=== PATIENT | male | born 1945 | race Caucasian/White ===

== ENCOUNTER → 2021-03-12 | Outpatient (CLI) | payer MEDICARE, OTHER ==
--- NOTE | 2021-03-12 11:12 | Diagnostic Imaging Report ---
PROCEDURE: CT urinary tract, rule out kidney stone. TECHNIQUE: Multiple contiguous axial images were obtained through the abdomen and pelvis without the use of intravenous contrast. Auto Exposure Controls were utilized during the CT exam to meet ALARA standards for radiation dose reduction. INDICATION: Gross hematuria, history of renal malignancy and partial left nephrectomy; that treatment was seven years ago. COMPARISON: No priors. FINDINGS: There are multiple calculi within the bladder's lumen; the largest is 12 mm. The bladder is mildly thickened; however, it is not well distended, and its wall thickness is probably exaggerated on that basis. This patient has a faint nonobstructing punctate calculus within a left renal lower pole calyx of 1-2 mm. There is no right-sided renal calculus. There is no hydronephrosis. No radiopaque ureteral stone. Some mild nonspecific stranding of the bilateral perinephric fat, which may be chronic. A vague area of hypoattenuation in the right kidney at its middle third anteriorly measures just less than 2 cm, and a small partly exophytic low-density nodule in the left renal lower pole measures 9 mm. Peripheral calcifications along the anterior left renal upper pole cortex are likely postsurgical or post-treatment. The low-density renal foci are suboptimally characterized at this nonenhanced exam and are likely but inconclusively cysts. If the patient cannot tolerate iodinated contrast, follow-up with renal ultrasound suggested to assess their solid versus cystic character. This patient has a small hiatal hernia as well as a left hepatic lobe cyst and mild fatty infiltration. Low-density nodule in the right hepatic lobe segment is probably cystic as well. The gallbladder is normal. The adrenals are negative. The pancreas is negative. Spleen is normal in size. The aorta is nonaneurysmal. No abdominopelvic mesenteric or retroperitoneal lymphadenopathy. 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 No acute or suspicious appearing bony pathology. IMPRESSION: 1. Multiple bladder calculi and a nonobstructing intrarenal left kidney stone. No opaque ureteral stone or hydronephrosis. 2. Bladder shows equivocal thickening likely exaggerated by its lack of distention; however, an element of cystitis superimposed is suspected. 3. Vague low-density renal nodules, likely but inconclusively cystic. Either correlative [id number] imaging or sonographic interrogation recommended as nonemergent follow-up. 4. Fatty infiltration of the liver with scattered liver cysts, but no biliary abnormality. 5. No lymphadenopathy or findings suggestive of soft tissue or osseous metastasis. Dictated by: Dictated on workstation # [id number]
== END ==
LOC: RAD FS 10:36
PROVIDERS: ATTEND Family Medicine
DX: N21.0 Calculus in bladder (principal); N20.0 Calculus of kidney; N28.89 Other specified disorders of kidney and ureter; K76.0 Fatty (change of) liver, not elsewhere classified; K76.89 Other specified diseases of liver; Z85.528 Personal history of other malignant neoplasm of kidney; Z90.5 Acquired absence of kidney
CPT/HCPCS: 74176

== ENCOUNTER → 2021-03-30 | Outpatient (CLI) | payer MEDICARE, OTHER ==
--- NOTE | 2021-03-30 09:16 | Diagnostic Imaging Report ---
PROCEDURE: CT urinary tract, rule out kidney stone. TECHNIQUE: Multiple contiguous axial images were obtained through the abdomen and pelvis without the use of intravenous contrast. Auto Exposure Controls were utilized during the CT exam to meet ALARA standards for radiation dose reduction. INDICATION: Nephrolithiasis, followup. CORRELATION STUDY: 03/12/2021. FINDINGS: LOWER THORAX: Small hiatal hernia and slight circumferential wall thickening at the gastroesophageal junction. Lung bases are clear. LIVER: Probable cyst posterior left hepatic lobe. Additional indeterminate but unchanged low-density lesion posterior right hepatic lobe. Mild steatosis. GALLBLADDER: Present and unremarkable. No bile duct dilatation. SPLEEN: Unremarkable. PANCREAS: Unremarkable. ADRENAL GLANDS: Unremarkable. KIDNEYS: Unchanged low density lesions bilateral kidneys may reflect cysts but remain indeterminate. Punctate non-obstructing bilateral renal stones present. Asymmetric scarring superior pole left kidney. ABDOMINAL AORTA: Unremarkable, nonaneurysmal. A few small shotty aortocaval lymph nodes are present. GASTROINTESTINAL TRACT: No obstruction or inflammation. Normal appendix. A few scattered colonic diverticula without acute diverticulitis. URINARY BLADDER: Several approximately 5 to 6 mm bladder stones are present layering dependently. Additional calcification inseparable from the posterior inferior left bladder wall. Bladder wall thickening is present. REPRODUCTIVE: Prostate gland mildly enlarged. OSSEOUS STRUCTURES: Nonacute pars articularis defect at the L5 level with grade 2 spondylolisthesis of L5 on S1. Marked disc space narrowing. Additional degenerative changes throughout the lower lumbar spine. Various degrees of canal and foraminal narrowing. OTHER: None. IMPRESSION: 1. No appreciable change in multiple bladder calculi. Faint punctate non-obstructing bilateral renal stones. No definitive ureteric calcification or obstructive uropathy. 2. Unchanged bladder wall thickening. Again may be largely attributed to its somewhat underdistended appearance with possible cholecystitis not excluded. Small bladder wall calcification unchanged. 3. Bilateral low-density renal nodules which may very well reflect cysts; however, cannot be completely characterized on this study. Alternatively, followup imaging with either ultrasound or contrast-enhanced CT and/or MRI would be recommended. 4. Mild hepatic steatosis. Low-density lesions present which may reflect cysts but again are incompletely characterized as well. Dictated by: Dictated on workstation # [id number]
== END ==
LOC: RAD FS 08:21
PROVIDERS: ATTEND Family Medicine
DX: N20.0 Calculus of kidney (principal); N21.0 Calculus in bladder; N28.89 Other specified disorders of kidney and ureter; K76.0 Fatty (change of) liver, not elsewhere classified
CPT/HCPCS: 74176